=== PATIENT | female | born 1960 | race Caucasian/White ===

== ENCOUNTER → 2018-03-04 | Outpatient (CLI) | payer OTHER ==
[2018-03-04 18:01] LABS: HIV 1/2 Antibodies Non-Reactive; HIV-1p24 Antigen Non-Reactive
== END ==
LOC: COL.LAB 16:59
PROVIDERS: Orthopaedic Surgery
DX: Z01.812 Encounter for preprocedural laboratory examination (principal); M17.12 Unilateral primary osteoarthritis, left knee

== ENCOUNTER 2018-04-20 05:20 | Day surgery (SDC) | payer OTHER ==
[~2018-04-20] VITALS: Ht 162.6 cm; Wt 84.1 kg
[2018-04-20] MEDS ORDERED: WELLBUTRIN XL300 M1 PO (05:54)
[2018-04-20] MEDS ORDERED: TOPAMAX 100MG100 M1 PO (05:55)
[2018-04-20] MEDS ORDERED: DEPAKOTE ER 50500 MG PO ×2 (05:55)
[2018-04-20] MEDS ORDERED: ASPI325T6 PO (05:56)
[2018-04-20] MEDS ORDERED: LIPITOR 10MG10 MG PO (05:56)
[2018-04-20] MEDS ORDERED: COGENTIN 2MG2 MG/TA1 PO (05:56)
[2018-04-20 05:59] VITALS: BP 120/76; PULSE 89; TEMP 98.7
[2018-04-20 07:30] VITALS: BP 137/81; PULSE 86; TEMP 97.4
[2018-04-20 07:45] VITALS: BP 128/87; PULSE 84
[2018-04-20 08:00] VITALS: BP 121/86; PULSE 85
[2018-04-20 08:15] VITALS: BP 130/83; PULSE 82
== END 2018-04-20 08:34 | disposition home or self-care (01) ==
LOC: SDCO 05:20
DX: M25.662 Stiffness of left knee, not elsewhere classified (principal); M19.90 Unspecified osteoarthritis, unspecified site; Z96.651 Presence of right artificial knee joint; Z90.49 Acquired absence of other specified parts of digestive tract
CPT/HCPCS: J1100; J1885; J2405; J2704; J3010; J7120

== ENCOUNTER → 2019-03-04 | Outpatient (CLI) | payer OTHER ==
[~2019-03-04] MED LIST: ASPI325T6 PO; COGENTIN 2MG2 MG/TA1 PO; DEPAKOTE ER 50500 MG PO; LIPITOR 10MG10 MG PO; TOPAMAX 100MG100 M1 PO; WELLBUTRIN XL300 M1 PO
== END ==
LOC: BHSO 12:50
DX: F31.78 Bipolar disorder, in full remission, most recent episode mixed (principal)

== ENCOUNTER → 2019-05-30 | Outpatient (CLI) | payer OTHER | LOC: BHSO 13:01 | DX: F31.81 Bipolar II disorder (principal) | CPT/HCPCS: G0463 ==

== ENCOUNTER → 2019-08-29 | Outpatient (CLI) | payer OTHER | LOC: BHSO 13:06 | DX: F31.81 Bipolar II disorder (principal) | CPT/HCPCS: G0463 ==

== ENCOUNTER → 2019-11-30 | Outpatient (CLI) | payer OTHER | LOC: BHSO 13:19 | DX: F31.81 Bipolar II disorder (principal) | CPT/HCPCS: G0463 ==

== ENCOUNTER → 2019-12-16 | Outpatient (CLI) | payer OTHER | LOC: COL.RAD 10:30 | DX: M25.512 Pain in left shoulder (principal) | CPT/HCPCS: J3301; Q9967 ==

== ENCOUNTER → 2020-02-29 | Outpatient (CLI) | payer OTHER | LOC: BHSO 13:19 | DX: F31.81 Bipolar II disorder (principal) | CPT/HCPCS: G0463 ==